=== PATIENT | male | born 1960 | race Caucasian/White ===

== ENCOUNTER 2020-05-18 11:50 | Emergency (ER) | payer BC, OTHER ==
[2020-05-18] MEDS ORDERED: DIPHTH,PERTUSS(ACELL),TET 0.5 ML DISP.SYRIN IM ONE ×2 (11:57→12:12)
--- NOTE | 2020-05-18 11:58 | PDOC ---
History of Present Illness - General Chief Complaint: Laceration Stated Complaint: LEFT ARM LACERATION 2 WEEKS AGO Time Seen by Provider: 05/18/20 11:56 History Source: Patient Exam Limitations: No Limitations - History of Present Illness Initial Comments: 05/18/20 12:03 60y M hx of afib on coumadin, htn, presents with L arm laceration. Pt states that 2 weeks ago he fell and put his arm against a wooden beam. H ehas been putting bacitracin and hydrogen peroxide on it, but he noticed it seemed slightly more swollen/hard to the touch on some areas so came for evaluation due to concern it was infected. he deniesa ny fever/chills, pain, redness, streaking, discharge. Denies any other complaints including cp, sob, cough, abd pain, n/v, focal numbness/tingling/weakness. No other injuries, loc, head ache, neck pain. No hx of DM, not on steroids. PMD: Dr. 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) GI Disorders: Yes (GERD, HH) HTN: Yes - Surgical History Abdominal Surgery: Yes (HERNIA) - Immunization History Immunization Up to Date: Yes - Psycho-Social/Smoking History Smoking History: Never smoked Review of Systems - Review of Systems Able to Perform ROS?: Yes Comments:: 05/18/20 12:19 ROS: Constitutional - no reported Fever, Chills, HEENT: no reported vision changes Respiratory: no reported cough, sob Cardiac: no reported chest pain light headedness Abd/GI: no reported abd pain, nausea, vomiting, Musculskelatal - no reported back pain, neck pain skin - +laceraiton/swelling no reported bruising, erythema, rash neurological: no reported headache, numbness, focal weakness, tingling, ataxia, hematologic: easy bleeding (on coumadin) no reported easy bruising, easy bleeding *Physical Exam - Physical Exam 05/18/20 12:19 Exam: GENERAL: The patient is awake, alert, and fully oriented, Nontoxic - in no acute distress. HEAD: Normocephalic, atraumatic. EXTREMITIES: Normal range of motion, no focal tenderness, 2x3cm healing flap on the ulnar aspect of shaggy L forearm, wound is gaping, but dry and healing without any discharge, erythema, warmth. There is some induration without tenderness or erythema on the proximal aspect of the wound. no visible foreign body, no visible tendons/ligaments/bones visible (wound was not opened to explore as it is healing) NEUROLOGICAL: n/v intact on distal L hand/arm. Medical Decision Making - Medical Decision Making 05/18/20 12:10 Pts BP noted to be elevated- stats he took his BP meds this AM - states he had a bad experience in the past from a hospitalization so he is often very anxious in the hospital. States when he checks his BP at home, it is usually in the normal range. 05/18/20 12:19 healing gaping wound. not oepn, not wet, no signs of actu einfection beside some mild swelling/firmness to the proximal wound without erythema/induration/tenderness/dischage/streaking will give coruse of abx due to possiblity of infection that may be causing the swelling - may be due to post traumatic changes. return precautiosn were discussed, PMD fu will update tetanus. Discharge - Discharge Information Problems reviewed: Yes Clinical Impression/Diagnosis: Laceration of skin with delay in treatment Laceration of arm Qualifiers: Encounter type: initial encounter Laterality: left Qualified Code(s): S41.112A - Laceration without foreign body of left upper arm, initial encounter Hypertension Qualifiers: Hypertension type: unspecified Qualified Code(s): I10 - Essential (primary) hypertension Condition: Stable Disposition: HOME - Admission No - Additional Discharge Information Prescriptions: Cephalexin Monohydrate [Keflex -] 500 mg PO Q8H #15 capsule - Follow up/Referral Referrals: Jim Griffith MD [Staff Physician] - - Patient Discharge Instructions Additional Instructions: Return to the emergency department immediately with ANY new, persistent or worsening symptoms Including any redness, worsening swelling, any pain, discharge or any other concerns. You MUST call and follow up with your doctor in 3-4 days for further evaluation of your symptoms. Results were discussed with you. Please make sure your doctor reviews the results of your emergency evaluation. Your Emergency Department visit is not complete without a follow up with your doctor. Print Language: SPANISH - Post Discharge Activity
[2020-05-18 12:05] VITALS: PULSE 83; TEMP 98.3; BMI 44.3
[2020-05-18 12:39] VITALS: BP 150/102
== END 2020-05-18 12:49 | disposition home or self-care (01) ==
LOC: FER 11:50
PROC: 3E0234Z Introduction of Serum, Toxoid and Vaccine into Muscle, Percutaneous Approach (ICD-10-PCS; principal; 2020-05-18)
DX: S41.112A Laceration without foreign body of left upper arm, initial encounter (principal); I10 Essential (primary) hypertension
CPT/HCPCS: 90715; 99284-25

== ENCOUNTER 2021-04-24 13:15 | Emergency (ER) | payer OTHER ==
[2021-04-24 13:46] VITALS: TEMP 99.6; BMI 51.7
[2021-04-24 14:15] LABS: HEMATOCRIT 39.3 % (35.4-49); HEMOGLOBIN 12.9 GM/dl (11.7-16.9); LYMPH % 18.2 % (8-40); MCH 30.2 pg (25.7-33.7); MCHC 32.9 g/dl (32.0-35.9); MEAN CELL VOLUME 91.7 fl (80-96); MEAN PLT VOLUME 7.5 fl (7.5-11.1); MONO % 9.5 % (3.8-10.2); NEUT % 70.3 % (42.8-82.8); PLATELET COUNT 182 10^3/uL (134-434); RBC 4.29 M/mm3 (4.00-5.60); RDW 13.4 % (11.9-15.9); WHITE BLOOD COUNT 5.8 K/mm3 (4.0-10.8)
[2021-04-24 14:40] LABS: ALBUMIN 3.7 g/dl (3.4-5.0); BILIRUBIN,TOTAL 1.5 mg/dl (0.2-1); CALCIUM 8.6 mg/dl (8.5-10); CREATININE 0.8 mg/dl (0.55-1.3); MAGNESIUM 2.1 mg/dL (1.8-2.4)
[2021-04-24 14:46] LABS: ACTIVATED PTT 30.4 SECONDS (25.2-36.5); INR 2.72 (0.82-1.09); PROTHROMBIN TIME (PATIENT) 28.5 SEC (10.2-13.0)
[2021-04-24 16:04] LABS: LIPASE 116 U/L (73-393)
[2021-04-24 18:06] VITALS: BP 138/75; PULSE 78
== END 2021-04-24 18:07 | disposition home or self-care (01) ==
LOC: FER 13:15
DX: S30.1XXA Contusion of abdominal wall, initial encounter (principal); M25.522 Pain in left elbow
CPT/HCPCS: 36415; 70450-TC; 71045-TC-FY; 71260-TC; 72125-TC; 73070-TC-LT-FY; 74177-TC; 76882-TC-RT-FY; 80053; 81003; 82550; 83690; 83735; 84484; 85025; 85610; 85730; 86850; 86900; 86901; 87086; 93005; 99285-25; C9803; Q9967; U0003; U0005